=== PATIENT | male | born 1955 | race Caucasian/White ===

== ENCOUNTER 2017-03-05 07:50 | Outpatient (CLI) | payer OTHER | END 2017-03-05 07:51 | disposition critical access hospital (66) | LOC: EMS 07:50 | PROVIDERS: ATTEND Surgery | DX: S09.90XA Unspecified injury of head, initial encounter (principal); R41.82 Altered mental status, unspecified; V28.4XXA Motorcycle driver injured in noncollision transport accident in traffic accident, initial encounter; Y92.413 State road as the place of occurrence of the external cause | CPT/HCPCS: A0425; A0427 ==

== ENCOUNTER 2017-03-05 07:57 | Emergency (ER) | payer OTHER ==
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
[2017-03-05 08:22] LABS: BASOPHILS # (AUTO) 0.1 10^3/uL (0.0-0.1); BASOPHILS % (AUTO) 0.7 %; EOSINOPHILS % (AUTO) 0.3 %; HCT - HEMATOCRIT 43.6 % (42.0-52.0); HGB - HEMOGLOBIN 14.5 g/dL (14.0-18.0); LYMPHOCYTES # (AUTO) 1.1 10^3/uL (1.5-3.5); MEAN CORPUSCULAR HEMOGLOBIN 26.5 pg (27.0-31.0); MEAN CORPUSCULAR HGB CONC 33.2 g/dL (32.0-36.0); MEAN CORPUSCULAR VOLUME 79.8 fL (80.0-94.0); MEAN PLATELET VOLUME 8.6 fL (7.4-11.4); MONOCYTES # (AUTO) 0.4 10^3/uL (0.0-1.0); MONOCYTES % (AUTO) 5.7 %; NEUTROPHILS # (AUTO) 6.1 10^3/uL (1.5-6.6); NEUTROPHILS % (AUTO) 79.3 %; RED BLOOD COUNT 5.47 10^6/uL (4.70-6.10); RED CELL DISTRIBUTION WIDTH 17.7 % (12.0-15.0); UNCORRECTED WHITE BLOOD COUNT 7.7 x10^3/uL; WHITE BLOOD COUNT 7.7 x10^3/uL (4.8-10.8)
[2017-03-05 08:32] LABS: ALBUMIN/GLOBULIN RATIO 1.5 (1.0-2.2); BILIRUBIN,TOTAL 1.2 mg/dL (0.2-1.0); BUN - BLOOD UREA NITROGEN 25 mg/dL (6-20); CARBON DIOXIDE - CO2 22 mmol/L (21-32); CHLORIDE 105 mmol/L (101-111); CREATININE 1.5 mg/dL (0.6-1.2); GFR - MDRD 48 (>89); GLUCOSE 128 mg/dL (70-100); LIPASE 55 U/L (22-51); POTASSIUM 3.6 mmol/L (3.5-5.0); SODIUM 138 mmol/L (135-145); TOTAL PROTEIN 7.2 g/dL (6.7-8.2)
--- NOTE | 2017-03-05 09:12 | XRAY Preliminary Report ---
Exam: XR Chest 1 View IMPRESSION: 1. Moderate diffuse opacities in both lungs could represent edema. 2. Heart and mediastinum appear within normal limits. 3. Deformity left clavicle appears chronic with otherwise no definite displaced fractures identified. [facility] SITE ID: [id number]
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
[2017-03-05] MEDS ORDERED: SODIUM CHLORIDE 0.9% 1,000 ML IV ONE (09:28)
--- NOTE | 2017-03-05 09:55 | CT Preliminary Report ---
Exam: CT Head W/O IMPRESSION: 1. Hyperattenuation seen about the gyral markings in bilateral parietal lobes compatible with subarac hnoid hemorrhage, with possible parenchymal component in the left parasagittal region measuring up to 2.9 cm without significant mass effect. No midline shift noted. No evidence of subdural hemorrhage. 2. Senescent changes otherwise seen. Critical result for hemorrhage: Above was discussed with Dr. Lopez at time of dictation on at 9:49 AM. [facility] SITE ID: [id number]
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
--- NOTE | 2017-03-05 10:09 | CT Preliminary Report ---
Exam: CT Cervical Spine W/O IMPRESSION: 1. No acute cervical spine injury. 2. Scattered cervical spondylosis as noted above. -C4-C5: Left mild foraminal stenosis. [facility] SITE ID: [id number]
[2017-03-05] MEDS ORDERED: ONDANSETRON 4 MG/2 ML VIAL IVP STA (10:10)
[2017-03-05] MEDS ORDERED: MORPHINE 2 MG/ML SYRINGE IVP STA (10:10)
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
[2017-03-05] MEDS ORDERED: ONDANSETRON 4 MG/2 ML VIAL ONE (10:18)
[2017-03-05] MEDS ORDERED: MORPHINE 2 MG/ML SYRINGE ONE (10:18)
[2017-03-05] MEDS ORDERED: SODIUM CHLORIDE FLUSH 0.9% 10 ML SYRINGE IVP ONE (10:19)
--- NOTE | 2017-03-05 10:31 | CT Preliminary Report ---
Exam: CT Abdomen/Pelvis W/O IMPRESSION: 1. No evidence of genetic injury within the abdomen. 2. Left rib fractures as described on chest CT. 3. Exophytic probable cyst measuring 3.9 cm in the lower pole of the right kidney. Comparison to prio r exams or nonurgent renal ultrasound is recommended for further characterization. 4. Nonobstructing 4.5 mm calculus in the upper pole of the right kidney. 5. Sigmoid diverticulosis without evidence of diverticulitis. [facility] SITE ID: [id number]
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
[2017-03-05 10:43] VITALS: BP 136/85
== END 2017-03-05 10:55 | disposition short-term general hospital (02) ==
LOC: ED 07:57
DX: S06.309A Unspecified focal traumatic brain injury with loss of consciousness of unspecified duration, initial encounter (principal); S22.42XA Multiple fractures of ribs, left side, initial encounter for closed fracture; S27.321A Contusion of lung, unilateral, initial encounter; V28.4XXA Motorcycle driver injured in noncollision transport accident in traffic accident, initial encounter; Y92.488 Other paved roadways as the place of occurrence of the external cause; I10 Essential (primary) hypertension
CPT/HCPCS: 36415; 70450; 71010; 71250; 72125; 74176; 80053; 80320; 83690; 85025; 86850; 86900; 86901; 96361; 96374; 96375; 99285; G0390; J2270